=== PATIENT | female | born 2005 | race Caucasian/White ===

== ENCOUNTER → 2025-02-05 | Outpatient (CLI) | payer OTHER | LOC: LAB 18:15 → LAB SHORT 18:15 | DX: N39.0 Urinary tract infection, site not specified (principal); R31.9 Hematuria, unspecified | CPT/HCPCS: 87077; 87086; 87186 ==

== ENCOUNTER → 2025-02-25 | Outpatient (CLI) | payer OTHER | LOC: LAB 14:42 → LAB SHORT 14:42 | DX: N39.0 Urinary tract infection, site not specified (principal) | CPT/HCPCS: 87077; 87086; 87186 ==